=== PATIENT | male | born 1975 | race Asian ===

== ENCOUNTER 2021-07-17 12:32 | Emergency (ER) | payer MEDICAID ==
[~2021-07-17] VITALS: Ht 165.1 cm; Wt 63.6 kg
[~2021-07-17 12:32] MED LIST: ASPI81TA43 PO; CARV3.1231 PO; CARV6 PO; FURO-151 PO; FURO40 PO; LISI-892 PO; POTA-92 PO
[2021-07-17 12:49] LABS: EOSINOPHILS % (AUTO) 9.8 % (1.0-6.0); HEMATOCRIT 39.3 % (41-53); HEMOGLOBIN 12.8 g/dL (13.5-17.5); LYMPHOCYTES # (AUTO) 2.1 K/uL (1.0-4.8); MEAN CORPUSCULAR HEMOGLOBIN 30.6 pg (26.0-34.0); MEAN CORPUSCULAR HGB CONC 32.7 G/dL (31.0-37.0); MEAN CORPUSCULAR VOLUME 94 fL (80-100); MONOCYTES # (AUTO) 0.5 K/uL (0.1-1.0); MONOCYTES % (AUTO) 6.8 % (2.0-9.0); NEUTROPHILS # (AUTO) 3.9 K/uL (1.8-7.7); NEUTROPHILS % (AUTO) 53.4 % (40.0-70.0); PLATELET COUNT (AUTO) 256 K/uL (150-450); RED CELL DISTRIBUTION WIDTH 14.2 % (11.5-14.5)
[2021-07-17 12:59] LABS: ANION GAP 8 mmol/L (8-16); CALCIUM, TOTAL 8.9 mg/dL (8.8-10.5); CARBON DIOXIDE 29 mmol/L (22-29); CHLORIDE 107 mmol/L (98-107); CREATININE 1.17 mg/dL (0.60-1.30); GLOMERULAR FILTR. RATE CALC > 60 mL/min (>60); GLUCOSE,RANDOM 151 mg/dL (70-110); POTASSIUM 3.8 mmol/L (3.5-5.1); SODIUM SERUM 144 mmol/L (136-145); UREA NITROGEN, BLOOD 15 mg/dL (7-18)
[2021-07-17] MEDS ORDERED: ASPIRIN 81 MG CHEWABLE TABLET PO ONE (13:00)
[2021-07-17 13:05] LABS: ALANINE AMINOTRANSFERASE 63 U/L (12-78); ALBUMIN 3.7 g/dL (3.4-5.0); ALKALINE PHOSPHATASE 69 U/L (46-116); ASPARTATE AMINOTRANSFERASE 39 U/L (15-37); BILIRUBIN,TOTAL 0.5 mg/dL (0.1-1.0); TOTAL PROTEIN, SERUM 7.2 g/dL (6.4-8.2)
[2021-07-17 13:09] LABS: B-TYPE NATRIURETIC PEPTIDE 449 pg/mL (0-100)
[2021-07-17] MEDS ORDERED: LORazepam 2 MG TABLET PO ONE (13:30)
[2021-07-17 17:00] VITALS: BP 122/61
[2021-07-17] MEDS ORDERED: FUROSEMIDE 20 MG TABLET PO ONE (17:00)
== END 2021-07-17 18:37 | disposition home or self-care (01) ==
LOC: EMS 12:35
DX: I11.0 Hypertensive heart disease with heart failure (principal); I50.9 Heart failure, unspecified; R07.89 Other chest pain; F15.10 Other stimulant abuse, uncomplicated; Z79.899 Other long term (current) drug therapy
CPT/HCPCS: 71045; 80053; 83880; 84484; 85025; 93005; 99285; 36415-L1; 36415-TC

== ENCOUNTER 2022-07-18 12:12 | Emergency (ER) | payer MEDICAID ==
[~2022-07-18] VITALS: Ht 160 cm; Wt 56.8 kg
[2022-07-18 12:17] VITALS: BP 123/79
[2022-07-18 12:52] LABS: BASOPHILS % (AUTO) 1.2 % (0.0-2.0); EOSINOPHILS % (AUTO) 7.2 % (1.0-6.0); HEMATOCRIT 41.6 % (41-53); HEMOGLOBIN 13.7 g/dL (13.5-17.5); LYMPHOCYTES # (AUTO) 1.4 K/uL (1.0-4.8); LYMPHOCYTES % (AUTO) 21.6 % (22.0-44.0); MEAN CORPUSCULAR HEMOGLOBIN 30.6 pg (26.0-34.0); MEAN CORPUSCULAR HGB CONC 32.8 G/dL (31.0-37.0); MEAN CORPUSCULAR VOLUME 93 fL (80-100); MONOCYTES # (AUTO) 0.4 K/uL (0.1-1.0); MONOCYTES % (AUTO) 6.1 % (2.0-9.0); NEUTROPHILS # (AUTO) 4.2 K/uL (1.8-7.7); NEUTROPHILS % (AUTO) 63.9 % (40.0-70.0); PLATELET COUNT (AUTO) 225 K/uL (150-450); RED BLOOD CELL COUNT(AUTO) 4.47 MIL/uL (4.50-5.90); RED CELL DISTRIBUTION WIDTH 14.9 % (11.5-14.5)
[2022-07-18 13:09] LABS: ANION GAP 5 mmol/L (8-16); CALCIUM, TOTAL 8.4 mg/dL (8.8-10.5); CARBON DIOXIDE 25 mmol/L (22-29); CHLORIDE 106 mmol/L (98-107); CREATININE 0.88 mg/dL (0.60-1.30); GLOMERULAR FILTR. RATE CALC > 60 mL/min (>60); GLUCOSE,RANDOM 86 mg/dL (70-110); POTASSIUM 3.9 mmol/L (3.5-5.1); SODIUM SERUM 136 mmol/L (136-145); UREA NITROGEN, BLOOD 13 mg/dL (7-18)
[2022-07-18 13:14] LABS: ALANINE AMINOTRANSFERASE 118 U/L (12-78); ALBUMIN 3.1 g/dL (3.4-5.0); ALKALINE PHOSPHATASE 73 U/L (46-116); ASPARTATE AMINOTRANSFERASE 92 U/L (15-37); B-TYPE NATRIURETIC PEPTIDE 1920 pg/mL (0-100); BILIRUBIN,TOTAL 0.9 mg/dL (0.1-1.0); TOTAL PROTEIN, SERUM 6.4 g/dL (6.4-8.2)
[2022-07-18] MEDS ORDERED: FUROSEMIDE 20 MG TABLET PO ONE (13:30)
[2022-07-18] MEDS ORDERED: POTASSIUM CHLORIDE 10 MEQ ER TABLET PO ONE (13:30)
[2022-07-18] MEDS ORDERED: POTASSIUM CHLORIDE 20 MEQ ER TABLET PO ONE (13:30)
[2022-07-18] MEDS ORDERED: FURO-151 PO (13:52)
[2022-07-18] MEDS ORDERED: POTA-92 PO (13:52)
== END 2022-07-18 14:06 | disposition home or self-care (01) ==
LOC: EMS 12:14
DX: I11.0 Hypertensive heart disease with heart failure (principal); I50.9 Heart failure, unspecified; F15.90 Other stimulant use, unspecified, uncomplicated; Z98.890 Other specified postprocedural states
CPT/HCPCS: 71045; 80053; 83880; 84484; 85025; 93005; 99285; 36415-L1; 36415-TC

== ENCOUNTER 2022-08-17 04:03 | Inpatient (IN) | payer MEDICAID ==
[~2022-08-17] VITALS: Ht 160 cm; Wt 45.5 kg
[~2022-08-17 04:03] MED LIST changes: -CARV3.1231 PO; -FURO40 PO
[2022-08-17 04:59] LABS: ANION GAP 8 mmol/L (8-16); CALCIUM, TOTAL 8.8 mg/dL (8.8-10.5); CARBON DIOXIDE 26 mmol/L (22-29); CHLORIDE 103 mmol/L (98-107); CREATININE 1.14 mg/dL (0.60-1.30); GLUCOSE,RANDOM 112 mg/dL (70-110); POTASSIUM 3.9 mmol/L (3.5-5.1); SODIUM SERUM 137 mmol/L (136-145); UREA NITROGEN, BLOOD 16 mg/dL (7-18)
[2022-08-17 05:00] LABS: BASOPHILS % (AUTO) 0.9 % (0.0-2.0); EOSINOPHILS % (AUTO) 4.3 % (1.0-6.0); HEMATOCRIT 42.5 % (41-53); HEMOGLOBIN 13.8 g/dL (13.5-17.5); LYMPHOCYTES # (AUTO) 2.4 K/uL (1.0-4.8); LYMPHOCYTES % (AUTO) 23.6 % (22.0-44.0); MEAN CORPUSCULAR HEMOGLOBIN 30.2 pg (26.0-34.0); MEAN CORPUSCULAR HGB CONC 32.5 G/dL (31.0-37.0); MEAN CORPUSCULAR VOLUME 93 fL (80-100); MONOCYTES # (AUTO) 0.5 K/uL (0.1-1.0); MONOCYTES % (AUTO) 4.5 % (2.0-9.0); NEUTROPHILS # (AUTO) 6.9 K/uL (1.8-7.7); NEUTROPHILS % (AUTO) 66.7 % (40.0-70.0); PLATELET COUNT (AUTO) 229 K/uL (150-450); RED BLOOD CELL COUNT(AUTO) 4.57 MIL/uL (4.50-5.90); RED CELL DISTRIBUTION WIDTH 14.5 % (11.5-14.5)
[2022-08-17 05:01] LABS: GLOMERULAR FILTR. RATE CALC > 60 mL/min (>60)
[2022-08-17] MEDS ORDERED: HEPARIN SODIUM,PORCINE 5,000 UNITS/ML VIAL IVP ONE ×2 (05:15→05:30)
[2022-08-17] MEDS ORDERED: HEPARIN SODIUM,PORCINE 5,000 UNITS/ML VIAL IVP PRN ×2 (05:15)
[2022-08-17] MEDS ORDERED: NITROGLYCERIN 2% (1 GM=INCH) PACKET TP ONE (05:15)
[2022-08-17] MEDS ORDERED: HEPARIN SODIUM 25000 UNITS/D5W 250 ML IV PRN (05:15)
[2022-08-17 05:21] LABS: B-TYPE NATRIURETIC PEPTIDE 2160 pg/mL (0-100)
[2022-08-17 05:23] LABS: ALANINE AMINOTRANSFERASE 112 U/L (12-78); ALBUMIN 3.2 g/dL (3.4-5.0); ALKALINE PHOSPHATASE 90 U/L (46-116); ASPARTATE AMINOTRANSFERASE 92 U/L (15-37); BILIRUBIN,TOTAL 0.5 mg/dL (0.1-1.0); CREATINE KINASE, TOTAL ONLY 131 U/L (39-308); TOTAL PROTEIN, SERUM 7.1 g/dL (6.4-8.2)
[2022-08-17] MEDS ORDERED: MORPHINE SULFATE 4 MG/ML SYRINGE IVP ONE (06:15)
[2022-08-17] MEDS ORDERED: FUROSEMIDE 40 MG/4 ML VIAL IVP ONE (07:00)
[2022-08-17 07:02] LABS: COVID AG,FIA SOURCE NASOPHARYNGEAL
[2022-08-17] MEDS ORDERED: LISINOPRIL 10 MG TABLET PO ONE (09:45)
[2022-08-17] MEDS ORDERED: CARVEDILOL 6.25 MG TABLET PO ONE (09:45)
[2022-08-17 09:52] LABS: APPEARANCE,URINE CLEAR (CLEAR); BILIRUBIN,URINE NEGATIVE (NEGATIVE); GLUCOSE, URINE (UA) NEGATIVE (NEGATIVE); KETONES,URINE NEGATIVE (NEGATIVE); LEUKOCYTE ESTERASE ,URINE NEGATIVE (NEGATIVE); NITRATE,URINE NEGATIVE (NEGATIVE); OCCULT BLOOD,URINE NEGATIVE (NEGATIVE); PROTEIN,URINE NEGATIVE (NEGATIVE); SPECIFIC GRAVITIY, URINE 1.008 (1.003-1.030); UROBILINOGEN,URINE <=1.0 mg/dL (<=1.0)
[2022-08-17] MEDS ORDERED: ONDANSETRON HCL 4 MG/2 ML VIAL IVP PRN (10:15)
[2022-08-17] MEDS ORDERED: OxyCODONE HCL/ACETAMINOPHEN 5-325 MG TABLET PO PRN (10:15)
[2022-08-17] MEDS ORDERED: ACETAMINOPHEN 325 MG TABLET PO PRN (10:15)
[2022-08-17] MEDS ORDERED: MAGNESIUM HYDROXIDE SUSPENSION 30 ML UDCUP PO PRN (10:15)
[2022-08-17 16:43] VITALS: BP 106/81
[2022-08-17] MEDS: HEPARIN SODIUM,PORCINE 5,000 UNITS/ML VIAL SQ SCH (18:36)
[2022-08-17 20:23] VITALS: BP 102/70
[2022-08-17] MEDS: FUROSEMIDE 20 MG/2 ML VIAL IVP SCH (21:35)
[2022-08-18 00:18] VITALS: BP 105/55
[2022-08-18] MEDS: HEPARIN SODIUM,PORCINE 5,000 UNITS/ML VIAL SQ SCH ×2 (00:30→08:24)
[2022-08-18 04:50] VITALS: BP 117/78
[2022-08-18 06:18] LABS: AMPHET/METH SCREEN,URINE POSITIVE (NEGATIVE); BARBITURATE SCREEN, URINE NEGATIVE (NEGATIVE); BENZODIAZEPINES SCREEN,URINE NEGATIVE (NEGATIVE); CANNABINOID SCREEN,URINE NEGATIVE (NEGATIVE); COCAINE SCREEN,URINE NEGATIVE (NEGATIVE); METHADONE SCREEN, URINE NEGATIVE (NEGATIVE); OPIATE SCREEN,URINE POSITIVE (NEGATIVE)
[2022-08-18 06:27] LABS: PHENCYCLIDINE SCREEN,URINE NEGATIVE (NEGATIVE)
[2022-08-18 07:33] VITALS: BP 111/77
[2022-08-18] MEDS: FUROSEMIDE 20 MG/2 ML VIAL IVP SCH (08:24)
[2022-08-18] MEDS ORDERED: METOPROLOL SUCCINATE 25 MG ER TABLET PO SCH (09:00)
[2022-08-18] MEDS ORDERED: FAMOTIDINE 20 MG TABLET PO SCH (09:00)
[2022-08-18] MEDS ORDERED: LISINOPRIL 5 MG TABLET PO SCH (09:00)
[2022-08-18 10:58] VITALS: BP 101/69
[2022-08-18] MEDS ORDERED: LISI-893 PO ×2 (12:19→12:20)
[2022-08-18] MEDS ORDERED: METO25XL PO (12:21)
[2022-08-18] MEDS ORDERED: POTA8CAP20 PO (12:21)
[2022-08-18] MEDS ORDERED: FURO20 PO (12:22)
[2022-08-19] MEDS ORDERED: LISINOPRIL 10 MG TABLET PO SCH (09:00)
== END 2022-08-18 12:40 | disposition home or self-care (01) | DRG 812 ==
LOC: EMS 05:00 → 5S 14:30
PROVIDERS: ADMIT Internal Medicine; ATTEND Internal Medicine
DX: T43.651A Poisoning by methamphetamines accidental (unintentional), initial encounter (principal); I50.23 Acute on chronic systolic (congestive) heart failure; I11.0 Hypertensive heart disease with heart failure; I42.7 Cardiomyopathy due to drug and external agent; I42.8 Other cardiomyopathies; F41.9 Anxiety disorder, unspecified; F17.210 Nicotine dependence, cigarettes, uncomplicated; F15.10 Other stimulant abuse, uncomplicated; Z20.822 Contact with and (suspected) exposure to COVID-19; Z59.00 Homelessness unspecified; Z79.82 Long term (current) use of aspirin; Z79.899 Other long term (current) drug therapy; Z91.14 Patient's other noncompliance with medication regimen; Z91.199 Patient's noncompliance with other medical treatment and regimen due to unspecified reason; Y92.89 Other specified places as the place of occurrence of the external cause
CPT/HCPCS: 71045; 80053; 80307; 81003; 82550; 83880; 84484; 85025; 85610; 85730; 93005; 93306; 99285; G0378; J1644; J1940; J2270; 36415-L1; 36415-TC

== ENCOUNTER 2022-10-08 02:08 | Inpatient (IN) | payer MEDICAID ==
[~2022-10-08] VITALS: Ht 162.6 cm; Wt 50.8 kg
[~2022-10-08 02:08] MED LIST changes: -CARV6 PO; -FURO-151 PO; +FURO20 PO; -LISI-892 PO; +LISI-893 PO; +METO25XL PO; -POTA-92 PO; +POTA8CAP20 PO
[2022-10-08 02:28] LABS: EOSINOPHILS % (AUTO) 4.9 % (1.0-6.0); HEMATOCRIT 41.4 % (41-53); HEMOGLOBIN 12.9 g/dL (13.5-17.5); LYMPHOCYTES # (AUTO) 4.3 K/uL (1.0-4.8); LYMPHOCYTES % (AUTO) 39.6 % (22.0-44.0); MEAN CORPUSCULAR HEMOGLOBIN 30.5 pg (26.0-34.0); MEAN CORPUSCULAR HGB CONC 31.2 G/dL (31.0-37.0); MEAN CORPUSCULAR VOLUME 98 fL (80-100); MONOCYTES # (AUTO) 0.7 K/uL (0.1-1.0); NEUTROPHILS # (AUTO) 5.3 K/uL (1.8-7.7); NEUTROPHILS % (AUTO) 48.5 % (40.0-70.0); PLATELET COUNT (AUTO) 227 K/uL (150-450); RED BLOOD CELL COUNT(AUTO) 4.24 MIL/uL (4.50-5.90); RED CELL DISTRIBUTION WIDTH 16.7 % (11.5-14.5)
[2022-10-08] MEDS ORDERED: MORPHINE SULFATE 4 MG/ML SYRINGE IVP ONE (02:30)
[2022-10-08] MEDS ORDERED: NITROGLYCERIN 2% (1 GM=INCH) PACKET TP ONE (02:30)
[2022-10-08 02:38] LABS: CALCIUM, TOTAL 8.5 mg/dL (8.8-10.5); CREATININE 1.5 mg/dL (0.60-1.30); POTASSIUM 3.2 mmol/L (3.5-5.1)
[2022-10-08] MEDS ORDERED: FUROSEMIDE 40 MG/4 ML VIAL IVP ONE (03:00)
[2022-10-08 03:02] LABS: ALBUMIN 3.3 g/dL (3.4-5.0); BILIRUBIN,TOTAL 0.5 mg/dL (0.1-1.0)
[2022-10-08 03:21] LABS: COVID AG,FIA SOURCE NASOPHARYNGEAL
[2022-10-08 03:38] LABS: INFLUENZA TYPE A NEGATIVE FOR TYPE A (NEGATIVE); INFLUENZA TYPE B NEGATIVE FOR TYPE B (NEGATIVE)
[2022-10-08] MEDS ORDERED: ACETAMINOPHEN 325 MG TABLET PO PRN ×2 (03:45)
[2022-10-08] MEDS ORDERED: ONDANSETRON HCL 4 MG/2 ML VIAL IVP PRN ×2 (03:45)
[2022-10-08] MEDS ORDERED: MORPHINE SULFATE 2 MG/ML SYRINGE IVP PRN (03:45)
[2022-10-08] MEDS ORDERED: HEPARIN SODIUM 25000 UNITS/D5W 250 ML IV PRN (07:15)
[2022-10-08] MEDS ORDERED: HEPARIN SODIUM,PORCINE 5,000 UNITS/ML VIAL IVP PRN ×2 (07:15)
[2022-10-08] MEDS ORDERED: HEPARIN SODIUM,PORCINE 5,000 UNITS/ML VIAL SQ SCH (08:00)
[2022-10-08] MEDS: ASPIRIN 81 MG DR TABLET PO SCH (08:05)
[2022-10-08] MEDS: FUROSEMIDE 20 MG/2 ML VIAL IVP SCH ×3 (08:06→23:05)
[2022-10-08] MEDS ORDERED: ALPRAZolam 0.25 MG TABLET PO ONE (09:00)
[2022-10-08] MEDS ORDERED: LISINOPRIL 10 MG TABLET PO SCH (09:00)
[2022-10-08] MEDS: METOPROLOL SUCCINATE 25 MG ER TABLET PO SCH (09:12)
[2022-10-08] MEDS ORDERED: POTASSIUM CHLORIDE 20 MEQ ER TABLET PO ONE (09:45)
[2022-10-08 10:20] LABS: AMPHET/METH SCREEN,URINE POSITIVE (NEGATIVE); BARBITURATE SCREEN, URINE NEGATIVE (NEGATIVE); BENZODIAZEPINES SCREEN,URINE NEGATIVE (NEGATIVE); CANNABINOID SCREEN,URINE NEGATIVE (NEGATIVE); COCAINE SCREEN,URINE NEGATIVE (NEGATIVE); METHADONE SCREEN, URINE NEGATIVE (NEGATIVE); OPIATE SCREEN,URINE POSITIVE (NEGATIVE); PHENCYCLIDINE SCREEN,URINE NEGATIVE (NEGATIVE)
[2022-10-08] MEDS ORDERED: BISACODYL 5 MG EC TABLET PO PRN (18:30)
[2022-10-08] MEDS: DOCUSATE SODIUM 100 MG CAPSULE PO SCH (23:04)
[2022-10-08 23:24] VITALS: BP 106/74
[2022-10-09 06:33] LABS: BASOPHILS % (AUTO) 1.1 % (0.0-2.0); EOSINOPHILS % (AUTO) 4.7 % (1.0-6.0); HEMATOCRIT 41.6 % (41-53); HEMOGLOBIN 13.6 g/dL (13.5-17.5); LYMPHOCYTES # (AUTO) 2.3 K/uL (1.0-4.8); LYMPHOCYTES % (AUTO) 22.6 % (22.0-44.0); MEAN CORPUSCULAR HEMOGLOBIN 29.8 pg (26.0-34.0); MEAN CORPUSCULAR HGB CONC 32.6 G/dL (31.0-37.0); MEAN CORPUSCULAR VOLUME 91 fL (80-100); MONOCYTES # (AUTO) 0.7 K/uL (0.1-1.0); NEUTROPHILS # (AUTO) 6.5 K/uL (1.8-7.7); NEUTROPHILS % (AUTO) 64.6 % (40.0-70.0); PLATELET COUNT (AUTO) 225 K/uL (150-450); RED BLOOD CELL COUNT(AUTO) 4.55 MIL/uL (4.50-5.90); RED CELL DISTRIBUTION WIDTH 15.5 % (11.5-14.5)
[2022-10-09 06:39] LABS: ANION GAP 8 mmol/L (8-16); CALCIUM, TOTAL 9.3 mg/dL (8.8-10.5); CARBON DIOXIDE 28 mmol/L (22-29); CHLORIDE 102 mmol/L (98-107); CREATININE 1.09 mg/dL (0.60-1.30); GLUCOSE,RANDOM 97 mg/dL (70-110); POTASSIUM 3.5 mmol/L (3.5-5.1); SODIUM SERUM 138 mmol/L (136-145); UREA NITROGEN, BLOOD 21 mg/dL (7-18)
[2022-10-09 06:40] LABS: GLOMERULAR FILTR. RATE CALC > 60 mL/min (>60)
[2022-10-09 07:40] VITALS: BP 110/81
[2022-10-09] MEDS: ASPIRIN 81 MG DR TABLET PO SCH (08:32)
[2022-10-09] MEDS: LOSARTAN POTASSIUM 25 MG TABLET PO SCH (08:32)
[2022-10-09] MEDS: FUROSEMIDE 20 MG/2 ML VIAL IVP SCH (08:32)
[2022-10-09] MEDS: DOCUSATE SODIUM 100 MG CAPSULE PO SCH ×2 (08:32→20:22)
[2022-10-09] MEDS: METOPROLOL SUCCINATE 25 MG ER TABLET PO SCH (08:32)
[2022-10-09 11:00] VITALS: BP 106/72
[2022-10-09 15:52] VITALS: BP 102/76
[2022-10-09 19:53] VITALS: BP 93/64
[2022-10-09] MEDS: FUROSEMIDE 40 MG TABLET PO SCH (20:22)
[2022-10-10] VITALS: BP 97/65
[2022-10-10 04:12] VITALS: BP 108/71
[2022-10-10 07:12] VITALS: BP 95/60
[2022-10-10] MEDS ORDERED: SPIRONOLACTONE 25 MG TABLET PO SCH (09:00)
[2022-10-10] MEDS: METOPROLOL SUCCINATE 25 MG ER TABLET PO SCH (09:01)
[2022-10-10] MEDS: LOSARTAN POTASSIUM 25 MG TABLET PO SCH (09:02)
[2022-10-10] MEDS: ASPIRIN 81 MG DR TABLET PO SCH (09:02)
[2022-10-10] MEDS: FUROSEMIDE 40 MG TABLET PO SCH (09:02)
[2022-10-10] MEDS: DOCUSATE SODIUM 100 MG CAPSULE PO SCH (09:02)
[2022-10-10 11:03] VITALS: BP 100/74
[2022-10-10 14:48] VITALS: BP 100/66
== END 2022-10-10 15:10 | disposition home or self-care (01) | DRG 133 ==
LOC: EMS 02:09 → 5S 18:17
PROVIDERS: ADMIT Internal Medicine; ATTEND Internal Medicine
PROC: 3E0F7SF Introduction of Other Gas into Respiratory Tract, Via Natural or Artificial Opening (ICD-10-PCS; principal; 2022-10-08)
DX: J96.01 Acute respiratory failure with hypoxia (principal); I50.23 Acute on chronic systolic (congestive) heart failure; N17.9 Acute kidney failure, unspecified; E87.20 Acidosis, unspecified; I42.8 Other cardiomyopathies; I11.0 Hypertensive heart disease with heart failure; I34.0 Nonrheumatic mitral (valve) insufficiency; I07.1 Rheumatic tricuspid insufficiency; R73.9 Hyperglycemia, unspecified; E87.6 Hypokalemia; F15.10 Other stimulant abuse, uncomplicated; F17.290 Nicotine dependence, other tobacco product, uncomplicated; Z91.199 Patient's noncompliance with other medical treatment and regimen due to unspecified reason; Z79.899 Other long term (current) drug therapy
CPT/HCPCS: 71045; 74176; 80048; 80053; 82550; 83036; 83735; 83880; 84484; 85025; 85730; 87804; 93005; 93306; 99291; J1940; J2270; 36415-L1; 36415-TC

== ENCOUNTER 2022-12-29 19:44 | Emergency (ER) | payer MEDICAID ==
[~2022-12-29] VITALS: Ht 162.6 cm; Wt 50.5 kg
[2022-12-29 19:46] VITALS: BP 107/89
== END 2022-12-29 21:50 | disposition left against medical advice (07) ==
LOC: EMS 19:46
DX: Z53.21 Procedure and treatment not carried out due to patient leaving prior to being seen by health care provider (principal)

== ENCOUNTER 2025-01-04 20:29 | Emergency (ER) | payer MEDICAID ==
[~2025-01-04] VITALS: Ht 175.3 cm; Wt 63.0 kg
[~2025-01-04 20:29] MED LIST changes: -FURO20 PO; +FURO20TA5 PO
[2025-01-04 20:42] VITALS: BP 123/71; PULSE 106; RESP 22; TEMP 98.7; O2SAT 100
[2025-01-04] MEDS: NITROGLYCERIN 2% (1 GM=INCH) OINTMENT PACKET TP ONE (20:49)
[2025-01-04 20:53] LABS: BASOPHILS % (AUTO) 1.6 % (0.0-2.0); EOSINOPHILS % (AUTO) 5.6 % (1.0-6.0); HEMATOCRIT 41.2 % (41-53); HEMOGLOBIN 13.6 g/dL (13.5-17.5); LYMPHOCYTES # (AUTO) 2.3 K/uL (1.0-4.8); MEAN CORPUSCULAR HEMOGLOBIN 31.2 pg (26.0-34.0); MEAN CORPUSCULAR VOLUME 95 fL (80-100); MONOCYTES # (AUTO) 0.5 K/uL (0.1-1.0); MONOCYTES % (AUTO) 6.6 % (2.0-9.0); NEUTROPHILS # (AUTO) 4.5 K/uL (1.8-7.7); NEUTROPHILS % (AUTO) 57.2 % (40.0-70.0); PLATELET COUNT (AUTO) 200 K/uL (150-450); RED BLOOD CELL COUNT(AUTO) 4.35 MIL/uL (4.50-5.90); RED CELL DISTRIBUTION WIDTH 14.9 % (11.5-14.5); WHITE BLOOD COUNT (AUTO) 7.9 K/uL (4.5-11.0)
[2025-01-04] MEDS: MORPHINE SULFATE 2 MG/ML SYRINGE IVP ONE (20:53)
[2025-01-04 20:55] LABS: APPEARANCE,URINE CLEAR (CLEAR); BILIRUBIN,URINE NEGATIVE (NEGATIVE); COLOR,URINE YELLOW (YELLOW); GLUCOSE, URINE (UA) 70-100 mg/dL (NEGATIVE); KETONES,URINE NEGATIVE (NEGATIVE); LEUKOCYTE ESTERASE ,URINE NEGATIVE (NEGATIVE); NITRATE,URINE NEGATIVE (NEGATIVE); OCCULT BLOOD,URINE SMALL (NEGATIVE); PH,URINE 5.5 (5.0-8.0); PH,URINE DRUG SCREEN 5.5 (5.0-8.0); PROTEIN,URINE TRACE mg/dL (NEGATIVE); SPECIFIC GRAVITIY, URINE 1.016 (1.003-1.030); UROBILINOGEN,URINE <=1.0 mg/dL (<=1.0)
[2025-01-04 20:57] LABS: ANION GAP 11 mmol/L (8-16); CALCIUM, TOTAL 8.7 mg/dL (8.8-10.5); CARBON DIOXIDE 26 mmol/L (22-29); CHLORIDE 94 mmol/L (98-107); CREATININE 1.45 mg/dL (0.60-1.30); GLOMERULAR FILTR. RATE CALC 51 mL/min (>60); GLUCOSE,RANDOM 111 mg/dL (70-110); POTASSIUM 3.7 mmol/L (3.5-5.1); SODIUM SERUM 131 mmol/L (136-145); UREA NITROGEN, BLOOD 25 mg/dL (7-18)
[2025-01-04 21:03] LABS: ALCOHOL, URINE DRUG SCREEN NEGATIVE (NEGATIVE); AMPHET/METH SCREEN,URINE POSITIVE (NEGATIVE); BARBITURATE SCREEN, URINE NEGATIVE (NEGATIVE); BENZODIAZEPINES SCREEN,URINE NEGATIVE (NEGATIVE); CANNABINOID SCREEN,URINE NEGATIVE (NEGATIVE); COCAINE SCREEN,URINE NEGATIVE (NEGATIVE); METHADONE SCREEN, URINE NEGATIVE (NEGATIVE); OPIATE SCREEN,URINE NEGATIVE (NEGATIVE); PHENCYCLIDINE SCREEN,URINE NEGATIVE (NEGATIVE)
[2025-01-04 21:04] LABS: PROTHROMBIN TIME 12.1 SEC (9.4-11.6)
[2025-01-04 21:04] LABS: BACTERIA,URINE None Seen /HPF (None Seen); WBC,URINE 0-2 /HPF (0-5); YEAST,URINE Few /HPF (None Seen)
[2025-01-04 21:08] LABS: CREATINE KINASE, TOTAL ONLY 904 U/L (39-308)
[2025-01-04 21:10] LABS: TROPONIN I-HIGH SENSITIVITY 141 ng/L (<76)
[2025-01-04 21:25] LABS: B-TYPE NATRIURETIC PEPTIDE 1430 pg/mL (0-100)
[2025-01-04] MEDS: LORazepam 2 MG/ML VIAL IVP ONE (22:46)
[2025-01-04] MEDS: FUROSEMIDE 20 MG/2 ML VIAL IVP ONE (22:47)
[2025-01-04] MEDS ORDERED: METO25XL PO (23:12)
[2025-01-04 23:32] LABS: TROPONIN I-HIGH SENSITIVITY 145 ng/L (<76)
== END 2025-01-05 00:04 | disposition home or self-care (01) ==
LOC: EMS 20:29
DX: R07.9 Chest pain, unspecified (principal); F15.10 Other stimulant abuse, uncomplicated; I11.0 Hypertensive heart disease with heart failure; I50.9 Heart failure, unspecified; Z79.82 Long term (current) use of aspirin; Z79.899 Other long term (current) drug therapy
CPT/HCPCS: 99285; 96374; 96375; 71045; 80048; 81001; 82550; 83880; 84484; 85025; 85610; 85730; 36415; 93005; 80307; J1940; J2060

== ENCOUNTER 2025-01-07 23:52 | Inpatient (IN) | payer MEDICAID ==
[~2025-01-07] VITALS: Ht 167.6 cm; Wt 58.3 kg
[2025-01-08 00:48] LABS: BASOPHILS % (AUTO) 0.9 % (0.0-2.0); EOSINOPHILS % (AUTO) 1.8 % (1.0-6.0); HEMATOCRIT 42.2 % (41-53); HEMOGLOBIN 13.9 g/dL (13.5-17.5); LYMPHOCYTES # (AUTO) 1.7 K/uL (1.0-4.8); LYMPHOCYTES % (AUTO) 19.6 % (22.0-44.0); MEAN CORPUSCULAR HEMOGLOBIN 31.2 pg (26.0-34.0); MEAN CORPUSCULAR VOLUME 95 fL (80-100); MONOCYTES # (AUTO) 0.6 K/uL (0.1-1.0); MONOCYTES % (AUTO) 7.4 % (2.0-9.0); NEUTROPHILS # (AUTO) 6.1 K/uL (1.8-7.7); NEUTROPHILS % (AUTO) 70.3 % (40.0-70.0); PLATELET COUNT (AUTO) 225 K/uL (150-450); RED BLOOD CELL COUNT(AUTO) 4.45 MIL/uL (4.50-5.90); RED CELL DISTRIBUTION WIDTH 15.2 % (11.5-14.5); WHITE BLOOD COUNT (AUTO) 8.7 K/uL (4.5-11.0)
[2025-01-08] MEDS: FAMOTIDINE 20 MG/2 ML VIAL IVP ONE (00:53)
[2025-01-08 00:58] LABS: CALCIUM, TOTAL 8.9 mg/dL (8.8-10.5); CREATININE 1.44 mg/dL (0.60-1.30); POTASSIUM 3.5 mmol/L (3.5-5.1)
[2025-01-08 01:14] LABS: ALBUMIN 3.3 g/dL (3.4-5.0); BILIRUBIN,DIRECT 1.3 mg/dL (0.00-0.20); BILIRUBIN,TOTAL 2.2 mg/dL (0.1-1.0); TOTAL PROTEIN, SERUM 6.8 g/dL (6.4-8.2)
[2025-01-08] MEDS: MORPHINE SULFATE 2 MG/ML SYRINGE IVP ONE ×2 (01:27→03:24)
[2025-01-08] MEDS: SODIUM CHLORIDE 0.9% 1,000 ML IV ONE (01:27)
[2025-01-08] MEDS: METOCLOPRAMIDE HCL 5 MG/ML 2 ML VIAL IVP ONE (01:34)
[2025-01-08] MEDS: PIPERACILLIN/TAZO 3.375 GM/D5W 50 ML IV ONE (03:25)
[2025-01-08] MEDS: LORazepam 1 MG TABLET PO ONE (04:08)
[2025-01-08 04:25] LABS: APPEARANCE,URINE CLEAR (CLEAR); BILIRUBIN,URINE NEGATIVE (NEGATIVE); COLOR,URINE YELLOW (YELLOW); GLUCOSE, URINE (UA) NEGATIVE (NEGATIVE); KETONES,URINE NEGATIVE (NEGATIVE); LEUKOCYTE ESTERASE ,URINE NEGATIVE (NEGATIVE); NITRATE,URINE NEGATIVE (NEGATIVE); PROTEIN,URINE TRACE mg/dL (NEGATIVE); SPECIFIC GRAVITIY, URINE 1.013 (1.003-1.030)
[2025-01-08 04:31] LABS: ALCOHOL, URINE DRUG SCREEN NEGATIVE (NEGATIVE); AMPHET/METH SCREEN,URINE POSITIVE (NEGATIVE); BARBITURATE SCREEN, URINE NEGATIVE (NEGATIVE); BENZODIAZEPINES SCREEN,URINE NEGATIVE (NEGATIVE); CANNABINOID SCREEN,URINE NEGATIVE (NEGATIVE); COCAINE SCREEN,URINE NEGATIVE (NEGATIVE); METHADONE SCREEN, URINE NEGATIVE (NEGATIVE); OCCULT BLOOD,URINE NEGATIVE (NEGATIVE); OPIATE SCREEN,URINE POSITIVE (NEGATIVE); PHENCYCLIDINE SCREEN,URINE NEGATIVE (NEGATIVE)
[2025-01-08 05:39] LABS: TROPONIN I-HIGH SENSITIVITY 120 ng/L (<76)
[2025-01-08 11:00] VITALS: BP 117/78; PULSE 104; RESP 18; TEMP 97.6
[2025-01-08] MEDS ORDERED: MAGNESIUM HYDROXIDE SUSPENSION 30 ML UDCUP PO PRN (13:45)
[2025-01-08] MEDS ORDERED: BISACODYL 10 MG RECTAL RECTAL SUPPOSITORY PR PRN (13:45)
[2025-01-08] MEDS: MORPHINE SULFATE 2 MG/ML SYRINGE IVP PRN (14:34)
[2025-01-08 15:54] VITALS: BP 109/71; PULSE 56; RESP 19; TEMP 97.6; O2SAT 100
[2025-01-08] MEDS: HEPARIN SODIUM,PORCINE 5,000 UNITS/ML VIAL SQ SCH (16:13)
[2025-01-08] MEDS: LORazepam 2 MG/ML VIAL IVP PRN (16:13)
[2025-01-08 19:43] VITALS: BP 126/77; PULSE 114; RESP 22; TEMP 97.6; O2SAT 98
[2025-01-08] MEDS: FUROSEMIDE 20 MG/2 ML VIAL IVP SCH (19:56)
[2025-01-08] MEDS: DOCUSATE SODIUM 100 MG CAPSULE PO SCH (19:56)
[2025-01-08 20:41] LABS: ABG BASE EXCESS -2.2 mmol/L (-2.0-3.0); ABG CARBOXYHEMOGLOBIN 0.9 % (0.5-1.5); ABG HCO3 23.4 mmol/L (21.0-28.0); ABG METHEMOGLOBIN 0.3 % (0.0-1.5); ABG OXYGEN CONTENT 20.3 mL/dL (15.0-23.0); ABG OXYGEN SATURATION 96.7 % (94.0-98.0); ABG OXYHEMOGLOBIN 95.5 % (94.0-98.0); ABG PCO2 32 mmHg (32.0-48.0); ABG PH 7.449 (7.350-7.450); ABG TOTAL HEMOGLOBIN 15.1 G/dL (13.5-17.5); PO2, ARTERIAL BG 92.9 mmHg (83.0-108.0); SOURCE, BLOOD GAS ARTERIAL; TEMPERATURE, FAHRENHEIT, BG 98.6 FAHREN (96.0-98.6)
[2025-01-08 20:42] LABS: ALLEN TEST, BLOOD GAS Positive; O2 DEVICE,BLOOD GAS CANNULA (ROOM AIR); SITE, BLOOD GAS RT RADIAL
[2025-01-08] MEDS: FUROSEMIDE 40 MG/4 ML VIAL IVP ONE (20:52)
[2025-01-08 23:25] VITALS: BP 120/87; PULSE 111; RESP 20; TEMP 97.8; O2SAT 100
[2025-01-09 06:12] VITALS: BP 113/76; PULSE 102; RESP 20; TEMP 98; O2SAT 98
[2025-01-09 07:49] LABS: BASOPHILS % (AUTO) 1.1 % (0.0-2.0); EOSINOPHILS % (AUTO) 0.6 % (1.0-6.0); HEMATOCRIT 41.9 % (41-53); LYMPHOCYTES # (AUTO) 1.6 K/uL (1.0-4.8); LYMPHOCYTES % (AUTO) 22.7 % (22.0-44.0); MEAN CORPUSCULAR HEMOGLOBIN 31.9 pg (26.0-34.0); MEAN CORPUSCULAR HGB CONC 33.6 G/dL (31.0-37.0); MEAN CORPUSCULAR VOLUME 95 fL (80-100); MONOCYTES # (AUTO) 0.6 K/uL (0.1-1.0); NEUTROPHILS # (AUTO) 4.6 K/uL (1.8-7.7); NEUTROPHILS % (AUTO) 66.6 % (40.0-70.0); PLATELET COUNT (AUTO) 222 K/uL (150-450); RED CELL DISTRIBUTION WIDTH 15.2 % (11.5-14.5); WHITE BLOOD COUNT (AUTO) 6.9 K/uL (4.5-11.0)
[2025-01-09 08:00] VITALS: BP 116/81; PULSE 102; RESP 18; O2SAT 95
[2025-01-09 08:02] LABS: CALCIUM, TOTAL 9.1 mg/dL (8.8-10.5); CHOL/HDL RATIO 2.4 (4.2-7.3); CREATININE 1.52 mg/dL (0.60-1.30); POTASSIUM 4.4 mmol/L (3.5-5.1)
[2025-01-09 08:07] LABS: HEMOGLOBIN A1C 6.2 % (3.8-5.6)
[2025-01-09] MEDS: PANTOPRAZOLE SODIUM 40 MG DR TABLET PO SCH (08:26)
[2025-01-09] MEDS: ASPIRIN 81 MG DR TABLET PO SCH (08:26)
[2025-01-09] MEDS: LISINOPRIL 10 MG TABLET PO SCH (08:26)
[2025-01-09] MEDS: METOPROLOL SUCCINATE 25 MG ER TABLET PO SCH (08:26)
[2025-01-09 12:00] VITALS: BP 108/78; PULSE 83; RESP 20; TEMP 97.5; O2SAT 97
[2025-01-09] MEDS ORDERED: SPIR-37 PO (12:48)
[2025-01-09] MEDS ORDERED: LOSA-381 PO (12:48)
[2025-01-09] MEDS ORDERED: DAPA10TA PO (12:48)
[2025-01-09] MEDS ORDERED: FURO40TA5 PO (12:48)
[2025-01-09] MEDS: FUROSEMIDE 40 MG/4 ML VIAL IVP ONE (12:51)
[2025-01-09 14:31] LABS: TROPONIN I-HIGH SENSITIVITY 127 ng/L (<76)
[2025-01-09 15:47] VITALS: BP 85/61; PULSE 79; RESP 19; TEMP 98.1; O2SAT 96
[2025-01-09 16:00] VITALS: BP 137/58; PULSE 91; RESP 23; TEMP 97.2; O2SAT 95
[2025-01-09] MEDS: SODIUM CHLORIDE 0.9% 250 ML IV ONE (18:00)
[2025-01-09 20:00] VITALS: BP 104/65; PULSE 77; RESP 20; TEMP 98.2; O2SAT 95
[2025-01-09] MEDS ORDERED: DOPamine 400MG/D5W[STANDARD] 250 ML IV PRN (21:45)
[2025-01-10] VITALS: BP 96/54; PULSE 78; RESP 17; TEMP 98.4; O2SAT 100
[2025-01-10 04:00] VITALS: BP 95/55; PULSE 72; RESP 14; TEMP 98.2; O2SAT 94
[2025-01-10 06:12] LABS: BASOPHILS % (AUTO) 2.5 % (0.0-2.0); EOSINOPHILS % (AUTO) 1.2 % (1.0-6.0); HEMATOCRIT 40.8 % (41-53); HEMOGLOBIN 13.5 g/dL (13.5-17.5); LYMPHOCYTES # (AUTO) 2.1 K/uL (1.0-4.8); LYMPHOCYTES % (AUTO) 22.5 % (22.0-44.0); MEAN CORPUSCULAR HEMOGLOBIN 31.7 pg (26.0-34.0); MEAN CORPUSCULAR VOLUME 96 fL (80-100); MONOCYTES % (AUTO) 10.8 % (2.0-9.0); NEUTROPHILS # (AUTO) 5.8 K/uL (1.8-7.7); PLATELET COUNT (AUTO) 207 K/uL (150-450); RED BLOOD CELL COUNT(AUTO) 4.25 MIL/uL (4.50-5.90); RED CELL DISTRIBUTION WIDTH 15.2 % (11.5-14.5); WHITE BLOOD COUNT (AUTO) 9.2 K/uL (4.5-11.0)
[2025-01-10 06:27] LABS: CALCIUM, TOTAL 8.5 mg/dL (8.8-10.5); CREATININE 1.66 mg/dL (0.60-1.30); POTASSIUM 3.9 mmol/L (3.5-5.1)
[2025-01-10 08:00] VITALS: BP 104/54; PULSE 70; PULSE 74; RESP 20; TEMP 97.6; O2SAT 100
[2025-01-10] MEDS: FUROSEMIDE 40 MG/4 ML VIAL IVP ONE (10:28)
[2025-01-10 12:00] VITALS: BP 80/29; PULSE 91; PULSE 96; RESP 18; TEMP 97.5; O2SAT 100
[2025-01-10 16:00] VITALS: BP 107/76; PULSE 86; PULSE 91; RESP 16; TEMP 97.6; O2SAT 100
[2025-01-10 20:00] VITALS: BP 100/38; PULSE 77; RESP 16; TEMP 98; O2SAT 100
[2025-01-10] MEDS: ZOLPIDEM TARTRATE 5 MG TABLET PO PRN (20:42)
[2025-01-10] MEDS: FUROSEMIDE 20 MG/2 ML VIAL IVP SCH (20:43)
[2025-01-11] VITALS: BP 110/70; PULSE 80; RESP 17; TEMP 98.2; O2SAT 95
[2025-01-11 04:00] VITALS: BP 120/65; PULSE 79; RESP 15; TEMP 98; O2SAT 96
[2025-01-11 06:10] LABS: GLUCOMETER DEV NAME(LOC) ICUN.5; GLUCOSE,POINT OF CARE 144 MG/DL (70-110)
[2025-01-11 07:01] LABS: HEMATOCRIT 40.5 % (41-53); HEMOGLOBIN 13.4 g/dL (13.5-17.5); LYMPHOCYTES # (AUTO) 1.2 K/uL (1.0-4.8); LYMPHOCYTES % (AUTO) 17.9 % (22.0-44.0); MEAN CORPUSCULAR HEMOGLOBIN 31.4 pg (26.0-34.0); MEAN CORPUSCULAR HGB CONC 33.1 G/dL (31.0-37.0); MEAN CORPUSCULAR VOLUME 95 fL (80-100); MONOCYTES # (AUTO) 0.5 K/uL (0.1-1.0); MONOCYTES % (AUTO) 6.8 % (2.0-9.0); NEUTROPHILS # (AUTO) 4.7 K/uL (1.8-7.7); NEUTROPHILS % (AUTO) 68.3 % (40.0-70.0); PLATELET COUNT (AUTO) 169 K/uL (150-450); RED BLOOD CELL COUNT(AUTO) 4.28 MIL/uL (4.50-5.90); RED CELL DISTRIBUTION WIDTH 15.4 % (11.5-14.5); WHITE BLOOD COUNT (AUTO) 6.8 K/uL (4.5-11.0)
[2025-01-11 07:04] LABS: ANION GAP 5 mmol/L (8-16); CALCIUM, TOTAL 8.3 mg/dL (8.8-10.5); CARBON DIOXIDE 30 mmol/L (22-29); CHLORIDE 100 mmol/L (98-107); CREATININE 1.21 mg/dL (0.60-1.30); GLOMERULAR FILTR. RATE CALC > 60 mL/min (>60); GLUCOSE,RANDOM 77 mg/dL (70-110); POTASSIUM 3.3 mmol/L (3.5-5.1); SODIUM SERUM 135 mmol/L (136-145); UREA NITROGEN, BLOOD 24 mg/dL (7-18)
[2025-01-11 08:00] VITALS: BP 123/74; PULSE 90; PULSE 91; RESP 22; TEMP 98; O2SAT 99
[2025-01-11] MEDS ORDERED: POTASSIUM CHL 10 MEQ/WATER 50 ML IV PRN (08:45)
[2025-01-11 12:00] VITALS: BP 137/100; PULSE 106; RESP 21; TEMP 97.6; O2SAT 98
[2025-01-11 16:00] VITALS: BP 107/70; PULSE 98; RESP 19; TEMP 98; O2SAT 98
[2025-01-11] MEDS: POTASSIUM CHLORIDE 20 MEQ ER TABLET PO PRN (17:31)
[2025-01-11 20:00] VITALS: BP 154/72; PULSE 108; RESP 25; TEMP 98; O2SAT 99
[2025-01-11] MEDS: ACETAMINOPHEN 325 MG TABLET PO PRN (22:31)
[2025-01-12] VITALS (9 sets, daily range): BP systolic 106–141; BP diastolic 57–105; PULSE 90–115; RESP 17–31; TEMP 98.2–99.7; O2SAT 95–99
[2025-01-12 06:25] LABS: BASOPHILS % (AUTO) 0.6 % (0.0-2.0); EOSINOPHILS % (AUTO) 10.1 % (1.0-6.0); HEMATOCRIT 40.4 % (41-53); HEMOGLOBIN 13.6 g/dL (13.5-17.5); LYMPHOCYTES # (AUTO) 1.3 K/uL (1.0-4.8); LYMPHOCYTES % (AUTO) 18.2 % (22.0-44.0); MEAN CORPUSCULAR HEMOGLOBIN 32.3 pg (26.0-34.0); MEAN CORPUSCULAR HGB CONC 33.7 G/dL (31.0-37.0); MEAN CORPUSCULAR VOLUME 96 fL (80-100); MONOCYTES # (AUTO) 0.6 K/uL (0.1-1.0); MONOCYTES % (AUTO) 9.1 % (2.0-9.0); NEUTROPHILS # (AUTO) 4.4 K/uL (1.8-7.7); PLATELET COUNT (AUTO) 190 K/uL (150-450); RED BLOOD CELL COUNT(AUTO) 4.22 MIL/uL (4.50-5.90)
[2025-01-12 06:36] LABS: ANION GAP 4 mmol/L (8-16); CALCIUM, TOTAL 8.7 mg/dL (8.8-10.5); CARBON DIOXIDE 30 mmol/L (22-29); CHLORIDE 98 mmol/L (98-107); GLOMERULAR FILTR. RATE CALC > 60 mL/min (>60); GLUCOSE,RANDOM 79 mg/dL (70-110); POTASSIUM 4.2 mmol/L (3.5-5.1); SODIUM SERUM 132 mmol/L (136-145); UREA NITROGEN, BLOOD 23 mg/dL (7-18)
[2025-01-12] MEDS: SPIRONOLACTONE 25 MG TABLET PO SCH (11:52)
[2025-01-12] MEDS: ALBUTEROL SULFATE 2.5 MG/0.5 ML NEB SOLUTION NEB SCH (22:27)
[2025-01-13] VITALS (9 sets, daily range): BP systolic 95–118; BP diastolic 60–76; PULSE 16–97; RESP 16–38; TEMP 97.2–99.1; O2SAT 93–100
[2025-01-13] MEDS: MethylPREDNISolone SOD SUCC 125 MG/2 ML VIAL IVP ONE (03:18)
[2025-01-13] MEDS ORDERED: DEXTROSE 50%-WATER 25 GM/50 ML SYRINGE IVP ONE (03:22)
[2025-01-13 03:26] LABS: GLUCOMETER DEV NAME(LOC) 5S.2D; GLUCOSE,POINT OF CARE 64 MG/DL (70-110)
[2025-01-13] MEDS ORDERED: DEXTROSE 25%-WATER 2.5 GM/10 ML SYRINGE IVP ONE (03:30)
[2025-01-13] MEDS: DEXTROSE 50%-WATER 25 GM/50 ML SYRINGE IVP ONE (03:30)
[2025-01-13 03:55] LABS: ABG BASE EXCESS 1.9 mmol/L (-2.0-3.0); ABG CARBOXYHEMOGLOBIN 0.8 % (0.5-1.5); ABG HCO3 26.7 mmol/L (21.0-28.0); ABG METHEMOGLOBIN 0.1 % (0.0-1.5); ABG OXYGEN SATURATION 98.5 % (94.0-98.0); ABG OXYHEMOGLOBIN 97.6 % (94.0-98.0); ABG PCO2 33 mmHg (32.0-48.0); ABG PH 7.502 (7.350-7.450); ABG TOTAL HEMOGLOBIN 13.7 G/dL (13.5-17.5); PO2, ARTERIAL BG 117.3 mmHg (83.0-108.0); SOURCE, BLOOD GAS ARTERIAL; TEMPERATURE, FAHRENHEIT, BG 98.6 FAHREN (96.0-98.6)
[2025-01-13 03:56] LABS: ALLEN TEST, BLOOD GAS Positive; INSPIRATORY TIME, BG 0.9 SEC; O2 DEVICE,BLOOD GAS BIPAP (ROOM AIR); SITE, BLOOD GAS LFT RADIAL
[2025-01-13] MEDS: ONDANSETRON HCL 4 MG/2 ML VIAL IVP PRN (03:58)
[2025-01-13 04:30] LABS: GLUCOMETER DEV NAME(LOC) 5S.2D; GLUCOSE,POINT OF CARE 203 MG/DL (70-110)
[2025-01-13 04:48] LABS: BASOPHILS % (AUTO) 0.7 % (0.0-2.0); EOSINOPHILS % (AUTO) 0.5 % (1.0-6.0); HEMATOCRIT 40.1 % (41-53); HEMOGLOBIN 13.5 g/dL (13.5-17.5); LYMPHOCYTES % (AUTO) 15.4 % (22.0-44.0); MEAN CORPUSCULAR HEMOGLOBIN 31.9 pg (26.0-34.0); MEAN CORPUSCULAR HGB CONC 33.6 G/dL (31.0-37.0); MEAN CORPUSCULAR VOLUME 95 fL (80-100); MONOCYTES # (AUTO) 0.7 K/uL (0.1-1.0); MONOCYTES % (AUTO) 11.1 % (2.0-9.0); NEUTROPHILS # (AUTO) 4.5 K/uL (1.8-7.7); NEUTROPHILS % (AUTO) 72.3 % (40.0-70.0); PLATELET COUNT (AUTO) 175 K/uL (150-450); RED BLOOD CELL COUNT(AUTO) 4.21 MIL/uL (4.50-5.90); RED CELL DISTRIBUTION WIDTH 15.8 % (11.5-14.5); WHITE BLOOD COUNT (AUTO) 6.2 K/uL (4.5-11.0)
[2025-01-13 05:07] LABS: BILIRUBIN,TOTAL 2.6 mg/dL (0.1-1.0); CALCIUM, TOTAL 8.9 mg/dL (8.8-10.5); CREATININE 1.73 mg/dL (0.60-1.30); POTASSIUM 4.8 mmol/L (3.5-5.1); TOTAL PROTEIN, SERUM 6.9 g/dL (6.4-8.2)
[2025-01-13 05:14] LABS: PLATELET MORPHOLOGY COMMENT GIANT PLTS PRESENT
[2025-01-13] MEDS: FUROSEMIDE 20 MG/2 ML VIAL IVP SCH (10:09)
[2025-01-13] MEDS ORDERED: DEXMEDETOMIDINE 400 MCG/NS 100 ML IV PRN (16:00)
[2025-01-13 16:08] LABS: ABG BASE EXCESS 2.6 mmol/L (-2.0-3.0); ABG CARBOXYHEMOGLOBIN 1.2 % (0.5-1.5); ABG HCO3 26.8 mmol/L (21.0-28.0); ABG METHEMOGLOBIN 0.3 % (0.0-1.5); ABG OXYGEN CONTENT 18.2 mL/dL (15.0-23.0); ABG OXYGEN SATURATION 91.8 % (94.0-98.0); ABG OXYHEMOGLOBIN 90.4 % (94.0-98.0); ABG PCO2 35 mmHg (32.0-48.0); ABG PH 7.485 (7.350-7.450); ABG TOTAL HEMOGLOBIN 14.3 G/dL (13.5-17.5); PO2, ARTERIAL BG 60.6 mmHg (83.0-108.0); SOURCE, BLOOD GAS ARTERIAL; TEMPERATURE, FAHRENHEIT, BG 98.3 FAHREN (96.0-98.6)
[2025-01-13 16:09] LABS: ABG A-A DIFF O2 184.3 mmHg (10-20.0); ALLEN TEST, BLOOD GAS Positive; O2 DEVICE,BLOOD GAS CANNULA (ROOM AIR); SITE, BLOOD GAS LFT RADIAL
[2025-01-13] MEDS ORDERED: 0.9% SODIUM CHLORIDE 5 ML NEB SOLUTION NEB ONE (19:32)
[2025-01-14] VITALS (11 sets, daily range): BP systolic 87–117; BP diastolic 60–80; PULSE 66–86; RESP 17–23; TEMP 97.5–98.4; O2SAT 88–100
[2025-01-14] MEDS ORDERED: 0.9% SODIUM CHLORIDE 5 ML NEB SOLUTION NEB ONE ×4 (03:30→19:09)
[2025-01-14 06:09] LABS: CREATININE,URINE RANDOM 118.9 mg/dL (30.0-125.0)
[2025-01-14 06:18] LABS: CALCIUM, TOTAL 8.7 mg/dL (8.8-10.5); CREATININE 1.66 mg/dL (0.60-1.30); POTASSIUM 4.6 mmol/L (3.5-5.1)
[2025-01-14] MEDS: FUROSEMIDE 20 MG/2 ML VIAL IVP SCH (08:44)
[2025-01-14] MEDS: ZOLPIDEM TARTRATE 5 MG TABLET PO PRN (21:28)
[2025-01-15] VITALS (15 sets, daily range): BP systolic 92–129; BP diastolic 49–88; PULSE 63–98; RESP 12–27; TEMP 97.6–98.3; O2SAT 93–100
[2025-01-15] MEDS ORDERED: 0.9% SODIUM CHLORIDE 5 ML NEB SOLUTION NEB ONE ×4 (01:06→19:43)
[2025-01-15] MEDS: HYDROCODONE/ACETAMINOPHEN 5-325 MG TABLET PO PRN (03:40)
[2025-01-15 06:02] LABS: BASOPHILS % (AUTO) 0.2 % (0.0-2.0); EOSINOPHILS % (AUTO) 0.5 % (1.0-6.0); HEMATOCRIT 41.6 % (41-53); HEMOGLOBIN 13.7 g/dL (13.5-17.5); LYMPHOCYTES # (AUTO) 1.5 K/uL (1.0-4.8); LYMPHOCYTES % (AUTO) 11.6 % (22.0-44.0); MEAN CORPUSCULAR HEMOGLOBIN 31.4 pg (26.0-34.0); MEAN CORPUSCULAR VOLUME 95 fL (80-100); MONOCYTES # (AUTO) 0.9 K/uL (0.1-1.0); NEUTROPHILS # (AUTO) 10.7 K/uL (1.8-7.7); NEUTROPHILS % (AUTO) 80.7 % (40.0-70.0); PLATELET COUNT (AUTO) 184 K/uL (150-450); RED BLOOD CELL COUNT(AUTO) 4.38 MIL/uL (4.50-5.90); RED CELL DISTRIBUTION WIDTH 15.7 % (11.5-14.5); WHITE BLOOD COUNT (AUTO) 13.3 K/uL (4.5-11.0)
[2025-01-15 06:12] LABS: CALCIUM, TOTAL 9.1 mg/dL (8.8-10.5); CREATININE 1.33 mg/dL (0.60-1.30); POTASSIUM 4.6 mmol/L (3.5-5.1)
[2025-01-15 14:45] LABS: ABG A-A DIFF O2 110.3 mmHg (10-20.0); ABG BASE EXCESS 2.9 mmol/L (-2.0-3.0); ABG CARBOXYHEMOGLOBIN 0.8 % (0.5-1.5); ABG HCO3 27.5 mmol/L (21.0-28.0); ABG OXYGEN CONTENT 20.7 mL/dL (15.0-23.0); ABG OXYGEN SATURATION 99.2 % (94.0-98.0); ABG OXYHEMOGLOBIN 98.4 % (94.0-98.0); ABG PCO2 32 mmHg (32.0-48.0); ABG PH 7.518 (7.350-7.450); ABG TOTAL HEMOGLOBIN 14.8 G/dL (13.5-17.5); ALLEN TEST, BLOOD GAS Positive; O2 DEVICE,BLOOD GAS OXYMIZER (ROOM AIR); SITE, BLOOD GAS LFT RADIAL; SOURCE, BLOOD GAS ARTERIAL; TEMPERATURE, FAHRENHEIT, BG 97.8 FAHREN (96.0-98.6)
[2025-01-15] MEDS: AcetaZOLAMIDE SODIUM 500 MG VIAL IVP ONE (17:20)
[2025-01-16] VITALS (12 sets, daily range): BP systolic 96–117; BP diastolic 57–71; PULSE 67–89; RESP 18–28; TEMP 97.4–99.1; O2SAT 90–100
[2025-01-16] MEDS ORDERED: 0.9% SODIUM CHLORIDE 5 ML NEB SOLUTION NEB ONE ×2 (02:59→18:55)
[2025-01-16] MEDS: LISINOPRIL 10 MG TABLET PO SCH (08:47)
[2025-01-16] MEDS: FUROSEMIDE 40 MG/4 ML VIAL IVP ONE (16:13)
[2025-01-16 16:52] LABS: ALBUMIN 2.9 g/dL (3.4-5.0); BILIRUBIN,TOTAL 2.1 mg/dL (0.1-1.0); CALCIUM, TOTAL 8.7 mg/dL (8.8-10.5); CREATININE 1.81 mg/dL (0.60-1.30); MAGNESIUM 2.4 mg/dL (1.80-2.40); POTASSIUM 4.3 mmol/L (3.5-5.1); TOTAL PROTEIN, SERUM 6.6 g/dL (6.4-8.2)
[2025-01-16] MEDS: TORSEMIDE 20 MG TABLET PO SCH (21:46)
[2025-01-17] VITALS (11 sets, daily range): BP systolic 94–102; BP diastolic 56–71; PULSE 70–101; RESP 18–22; TEMP 97.5–98.7; O2SAT 93–100
[2025-01-17] MEDS ORDERED: 0.9% SODIUM CHLORIDE 5 ML NEB SOLUTION NEB ONE (03:10)
[2025-01-17 08:10] LABS: ABG BASE EXCESS 2.7 mmol/L (-2.0-3.0); ABG HCO3 27.4 mmol/L (21.0-28.0); ABG METHEMOGLOBIN 0.3 % (0.0-1.5); ABG OXYGEN CONTENT 18.5 mL/dL (15.0-23.0); ABG OXYGEN SATURATION 98.7 % (94.0-98.0); ABG OXYHEMOGLOBIN 97.4 % (94.0-98.0); ABG PCO2 31 mmHg (32.0-48.0); ABG TOTAL HEMOGLOBIN 13.4 G/dL (13.5-17.5); PO2, ARTERIAL BG 127.2 mmHg (83.0-108.0); SOURCE, BLOOD GAS ARTERIAL; TEMPERATURE, FAHRENHEIT, BG 98.1 FAHREN (96.0-98.6)
[2025-01-17 08:13] LABS: ABG A-A DIFF O2 122.5 mmHg (10-20.0); ALLEN TEST, BLOOD GAS Positive; SITE, BLOOD GAS LFT RADIAL
[2025-01-17 08:14] LABS: O2 DEVICE,BLOOD GAS OXYMIZER (ROOM AIR)
[2025-01-17] MEDS: ALBUTEROL SULFATE 2.5 MG/0.5 ML NEB SOLUTION NEB PRN (11:22)
[2025-01-17 11:25] LABS: BASOPHILS % (AUTO) 0.2 % (0.0-2.0); EOSINOPHILS % (AUTO) 0.1 % (1.0-6.0); HEMATOCRIT 41.2 % (41-53); HEMOGLOBIN 13.2 g/dL (13.5-17.5); LYMPHOCYTES # (AUTO) 1.5 K/uL (1.0-4.8); LYMPHOCYTES % (AUTO) 11.4 % (22.0-44.0); MEAN CORPUSCULAR HEMOGLOBIN 30.5 pg (26.0-34.0); MEAN CORPUSCULAR HGB CONC 32.1 G/dL (31.0-37.0); MEAN CORPUSCULAR VOLUME 95 fL (80-100); MONOCYTES # (AUTO) 1.5 K/uL (0.1-1.0); MONOCYTES % (AUTO) 11.1 % (2.0-9.0); NEUTROPHILS # (AUTO) 10.2 K/uL (1.8-7.7); NEUTROPHILS % (AUTO) 77.2 % (40.0-70.0); PLATELET COUNT (AUTO) 175 K/uL (150-450); RED BLOOD CELL COUNT(AUTO) 4.34 MIL/uL (4.50-5.90); RED CELL DISTRIBUTION WIDTH 16.3 % (11.5-14.5); WHITE BLOOD COUNT (AUTO) 13.2 K/uL (4.5-11.0)
[2025-01-17 11:29] LABS: CALCIUM, TOTAL 8.5 mg/dL (8.8-10.5); CREATININE 1.64 mg/dL (0.60-1.30); POTASSIUM 3.3 mmol/L (3.5-5.1)
[2025-01-17] MEDS: POTASSIUM CHLORIDE 20 MEQ ER TABLET PO ONE (18:29)
[2025-01-18] VITALS (14 sets, daily range): BP systolic 88–109; BP diastolic 53–69; PULSE 78–100; RESP 18–25; TEMP 98.1–99.8; O2SAT 94–100
[2025-01-18 06:49] LABS: BASOPHILS % (AUTO) 0.3 % (0.0-2.0); EOSINOPHILS % (AUTO) 0.3 % (1.0-6.0); HEMATOCRIT 39.6 % (41-53); HEMOGLOBIN 13.2 g/dL (13.5-17.5); LYMPHOCYTES # (AUTO) 1.6 K/uL (1.0-4.8); LYMPHOCYTES % (AUTO) 11.3 % (22.0-44.0); MEAN CORPUSCULAR HEMOGLOBIN 31.3 pg (26.0-34.0); MEAN CORPUSCULAR HGB CONC 33.3 G/dL (31.0-37.0); MEAN CORPUSCULAR VOLUME 94 fL (80-100); MONOCYTES # (AUTO) 1.6 K/uL (0.1-1.0); MONOCYTES % (AUTO) 11.1 % (2.0-9.0); NEUTROPHILS # (AUTO) 11.1 K/uL (1.8-7.7); PLATELET COUNT (AUTO) 206 K/uL (150-450); RED BLOOD CELL COUNT(AUTO) 4.21 MIL/uL (4.50-5.90); RED CELL DISTRIBUTION WIDTH 15.9 % (11.5-14.5); WHITE BLOOD COUNT (AUTO) 14.4 K/uL (4.5-11.0)
[2025-01-18 07:00] LABS: CALCIUM, TOTAL 8.3 mg/dL (8.8-10.5); CREATININE 1.36 mg/dL (0.60-1.30); POTASSIUM 3.5 mmol/L (3.5-5.1)
[2025-01-18] MEDS ORDERED: SODIUM CHLORIDE 0.9% 250 ML IV ONE (11:30)
[2025-01-18] MEDS: CefTRIAXone 1 GM/DEXTROSE 50 ML IV SCH (12:16)
[2025-01-18] MEDS: POTASSIUM CHLORIDE 20 MEQ ER TABLET PO ONE (12:17)
[2025-01-18] MEDS: AZITHROMYCIN 500 MG/NS 250 ML IV SCH (12:40)
[2025-01-18] MEDS ORDERED: 0.9% SODIUM CHLORIDE 5 ML NEB SOLUTION NEB ONE (16:11)
[2025-01-19] MEDS ORDERED: METOLAZONE 2.5 MG TABLET PO SCH (07:00)
== END 2025-01-18 16:55 | DRG 469 ==
LOC: EMS 23:54 → EDH 01-08 09:32 → 5N 01-08 10:45 → ICU 01-09 16:20 → 5S 01-12 19:21 → ICU 01-13 06:50 → 5S 01-15 11:23
PROVIDERS: ADMIT Internal Medicine; ATTEND Internal Medicine
PROC: 5A0935A Assistance with Respiratory Ventilation, Less than 24 Consecutive Hours, High Flow/Velocity Cannula (ICD-10-PCS; principal; 2025-01-13)
PROC: 5A09357 Assistance with Respiratory Ventilation, Less than 24 Consecutive Hours, Continuous Positive Airway Pressure (ICD-10-PCS; 2025-01-13)
PROC: 5A0935A Assistance with Respiratory Ventilation, Less than 24 Consecutive Hours, High Flow/Velocity Cannula (ICD-10-PCS; 2025-01-14)
DX: N17.0 Acute kidney failure with tubular necrosis (principal); J96.01 Acute respiratory failure with hypoxia; R57.0 Cardiogenic shock; G93.41 Metabolic encephalopathy; I50.43 Acute on chronic combined systolic (congestive) and diastolic (congestive) heart failure; I95.9 Hypotension, unspecified; E87.3 Alkalosis; E87.1 Hypo-osmolality and hyponatremia; I13.0 Hypertensive heart and chronic kidney disease with heart failure and stage 1 through stage 4 chronic kidney disease, or unspecified chronic kidney disease; E78.5 Hyperlipidemia, unspecified; I25.10 Atherosclerotic heart disease of native coronary artery without angina pectoris; F11.23 Opioid dependence with withdrawal; N18.9 Chronic kidney disease, unspecified; E87.6 Hypokalemia; F41.1 Generalized anxiety disorder; I08.1 Rheumatic disorders of both mitral and tricuspid valves; F15.23 Other stimulant dependence with withdrawal; F17.210 Nicotine dependence, cigarettes, uncomplicated; I42.8 Other cardiomyopathies; Z91.148 Patient's other noncompliance with medication regimen for other reason; Z91.199 Patient's noncompliance with other medical treatment and regimen due to unspecified reason
CPT/HCPCS: 36600; 70450; 71045; 71250; 74176; 76705; 76770; 80048; 80053; 80061; 80076; 80307; 81003; 82140; 82570; 82805; 82962; 83036; 83690; 83735; 83880; 84100; 84132; 84156; 84484; 84540; 85025; 87040; 87070; 87081; 87186; 93306; 94640; 94660; 94760; 97116; 97162; 99285; G0480; J0456; J0696; J1120; J1250; J1644; J1940; J2060; J2270; J2405; J2543; J2765; J2919; J3490; J7030; J7050; 36415-L1; 36415-TC; J7613